=== PATIENT | female | born 1980 ===

== ENCOUNTER → 2017-04-02 15:23 | Outpatient (CLI) | payer OTHER | END | disposition home or self-care (01) | LOC: D.LABREF 15:23 | DX: R59.0 Localized enlarged lymph nodes (principal) ==

== ENCOUNTER → 2017-04-22 11:45 | Outpatient (CLI) | payer OTHER | END | disposition home or self-care (01) | LOC: D.RAD 10:45 | DX: R59.0 Localized enlarged lymph nodes (principal) ==

== ENCOUNTER → 2017-05-20 14:32 | Outpatient (CLI) | payer OTHER | END | disposition home or self-care (01) | LOC: D.CT 14:30 | DX: R59.0 Localized enlarged lymph nodes (principal) ==

== ENCOUNTER 2017-05-31 06:20 | Outpatient (CLI) | payer OTHER ==
[~2017-05-31] VITALS: Ht 160 cm; Wt 49.1 kg
[2017-05-31] MEDS ORDERED: ZANTAC150 MG (07:08)
[2017-05-31 07:15] VITALS: Ht 160 cm; Wt 49.1 kg
[2017-05-31 07:22] LABS: BASOPHILS 0.4 % (0-2); EOSINOPHILS 2.2 % (0-7); HEMATOCRIT 39.5 % (36.0-48.0); HEMOGLOBIN 13.2 g/dL (12-16); IMMATURE GRANULOCYTES 0.2 % (0-5); LYMPHOCYTES 24.8 % (15-50); MCH 32.4 pg (26.0-34.0); MCHC 33.4 g/dL (31.0-37.0); MCV 96.8 fL (80.0-100.0); MEAN PLATELET VOLUME 9.6 fL (7.4-10.4); MONOCYTES 9.3 % (2-11); NEUTROPHILS 63.1 % (40-80); PLATELET COUNT 246 10x3/uL (130-400); RBC 4.08 10x6/uL (4.00-5.40); WBC 5.5 10x3/uL (4.8-10.8)
[2017-05-31 07:31] LABS: INR 1.03 (0.85-1.17); PROTIME 13.4 SECONDS (11.6-15.0)
[2017-05-31 07:32] LABS: APTT 32.4 SECONDS (22.8-39.4)
[2017-05-31 07:36] LABS: CALC OSMOLALITY 282 mosm/kg (275-300); CALCIUM 8.8 mg/dL (8.5-10.1); CARBON DIOXIDE 28.4 mmol/L (21.0-32.0); CHLORIDE - SERUM 107 mmol/L (98-107); CREATININE - SERUM 0.7 mg/dL (0.6-1.3); GLUCOSE 90 mg/dL (74-106); SODIUM 142 mmol/L (136-145); UREA NITROGEN 12 mg/dL (7-18); eGFR NON AFRICAN AMERICAN > 90 mL/min (90-120)
== END 2017-05-31 12:40 | disposition home or self-care (01) ==
LOC: D.OPS 06:20 → D.RAD 08:00 → D.OPS 08:00
PROVIDERS: Radiology Diagnostic Radiology
DX: R59.0 Localized enlarged lymph nodes (principal); Z01.812 Encounter for preprocedural laboratory examination; Z53.9 Procedure and treatment not carried out, unspecified reason